=== PATIENT | male | born 1990 | race Caucasian/White ===

== ENCOUNTER 2020-06-27 11:29 | Emergency (ER) | payer MEDICAID, SELFPAY ==
[2020-06-27 11:39] VITALS: BP 176/95; PULSE 89; RESP 19; TEMP 36.1; O2SAT 96; BMI 34.2
== END 2020-06-27 12:55 | disposition left against medical advice (07) ==
PROVIDERS: Emergency Provider Emergency Medicine; PCP Family Medicine
DX: R10.9 Unspecified abdominal pain (principal)
CPT/HCPCS: 99283